=== PATIENT | male | born 1980 | race Caucasian/White ===

== ENCOUNTER 2024-08-24 10:29 | Outpatient (AMB) | payer BC, SELFPAY ==
[2024-08-24 10:37] VITALS: BP 122/70; PULSE 71; O2SAT 96; BMI 53.3
--- NOTE | 2024-08-24 10:37 | MHC.OFFVIS ---
Vital Signs 08/24/24 10:37 Height 5 ft 9 in Weight 361 lb BMI 53.3 BP 122/70 Blood Pressure Location Rt brachial Position Sitting Pulse 71 Pulse Source Pulse Oximeter Pulse Oximetry (%) 96 Oxygen Delivery Method Room Air Intake Visit Reasons: Asthma Intake Note: Uses CPAP/ DME is Reliable. Zig Zag Stitcher Required: No Numerical Control Machine Tool Operator: Numerical Control Machine Tool Operator offered & declined Accompanied by: Self / Same As Patient Allergies Seasonal Allergies Allergy (Verified 08/24/24 10:41) sneezy, runny nose, cough, sob Medication List - Last Reconciled 08/24/24 by Lauren Ortiz LPN albuterol sulfate 90 mcg/actuation 2 puffs inhalation Q4-6H PRN citalopram (Celexa) 10 mg PO DAILY levothyroxine 200 mcg PO DAILY levothyroxine 37.5 mcg PO DAILY montelukast (Singulair) 10 mg PO DAILY HPI HPI Asthma: Details: Jhonathan is a pleasant 44 year old male, current minimal cigar smoker x 20 years, everyday marijuana smoker with underlying asthma, allergic rhinitis, DMII, morbid obesity BMI 53 and h/o seizure disorder. He was referred by ENT for pulmonary evaluation after recent spirometry revealed severe obstructive airway. He reports symptoms have been suboptimally controlled on albuterol MDI, using frequently for persistent dyspnea on exertion, chest tightness and wheezing. Reports occasional dry cough. He was previously prescribed Trelegy however not financially feasible. He reports symptoms can be triggered by allergies, recent RAST + multiple environmental allergens. He is prescribed Singulair and uses antihistmines with moderate effect. IgE 978. Many years ago underwent allergen immunotherapy. He currently has two dogs at home. He reports likely occupational exposures while working at [employer] x 18 years. He reports asthma dx as an adult, never requiring intubuation/hospitalizations. He reports mother and sister with seasonal allergies, denies any other pertinent family history. [facility] Social History (Updated 08/24/24 @ 10:45 by Lauren Ortiz LPN) Tobacco use type: Cigar Years Smoked: never cigarettes/ 5days/ week marijuana/ occasional cigars Review of Systems Const Denies chills, Denies excessive sweating, Denies fever(s), Denies headache(s) and Denies night sweats Eyes Denies dry eyes and Denies irritation ENT Reports Normal hearing present, Denies headache(s), Denies nasal discharge and Denies sore throat Card Denies chest pain, Denies chest pain at rest, Denies chest pain with activity, Denies claudication, Denies leg edema, Denies orthopnea and Denies paroxysmal nocturnal dyspnea Resp Denies chest congestion, Denies excessive phlegm production, Denies pain on inspiration, Denies pain with cough and Denies stridor Musc Denies myalgias Neuro Reports Normal hearing present and Denies headache(s) Endo Denies excessive sweating Marlon/Lymph Denies lymphadenopathy Aller/Immun Denies seasonal rhinorrhea Physical Exam Vital Signs: Last Vital Signs Pulse 71 08/24/24 10:37 BP 122/70 08/24/24 10:37 Pulse Ox 96 08/24/24 10:37 Oxygen Delivery Method Room Air 08/24/24 10:37 BMI result Body Mass Index 53.3 Const General: cooperative, healthy appearing, comfortable, no acute distress, well developed and alert Nutritional Appearance: obese Orientation/consciousness: patient oriented x3 Limitations: no limitations HEENT Head: Yes normal to inspection, Yes normocephalic and Yes atraumatic Ears: hearing grossly normal bilaterally and external ears normal Eyes General: appearance normal, both eyes and all related structures Eyelids: Yes eyelids normal Sclerae: sclerae normal EOM: EOMs intact bilaterally Neck Neck: Yes normal visual inspection and Yes no lymphadenopathy Lymphatic: no lymphadenopathy noted Chest Chest palpation & inspection: normal inspection of the chest Resp Effort & Inspection: normal respiratory effort, able to speak in complete sentences, no audible wheezes, no cough, no stridor, not tachypneic, no tripod positioning and no use of accessory muscles Auscultation: diminished lung sounds Cardio Jugular venous distension: no JVD Rate: regular rate Rhythm: regular rhythm Skin Other: warm, dry General skin exam: no rashes or lesions noted Neuro General: patient oriented x3 Cranial nerves: Yes Normal hearing present Cognition (Neuro): normal cognition Gait exam (Neuro): Normal gait present Extrem General: Yes normal to inspection, Yes capillary refill normal, Yes no clubbing, cyanosis or edema and Yes no pedal edema Psych Appearance: grossly normal and well kempt Speech and movement: Normal speech and movement present and Clear speech present Affect: normal affect Attitude: cooperative Thought process: Normal thought process present Thought content: Normal thought content present Insight: Good insight present (Psych) Judgement: Good judgement present (Psych) Assessment & Plan Assessment & Plan (1) Asthma: Code(s): J45.909 - Unspecified asthma, uncomplicated Category: Medical (2) Nicotine dependence, cigarettes, uncomplicated: Code(s): F17.210 - Nicotine dependence, cigarettes, uncomplicated Category: Medical (3) Allergic rhinitis: Code(s): J30.9 - Allergic rhinitis, unspecified Category: Medical Plan Jhonathan presents for pulmonary evaluation after recent spirometry through ENT revealed severe airway obstruction. FEV1/FVC 64%, FEV1 54%. Will empirically start patient on Breo 200 mcg. Discussed importance of good oral hygiene to prevent thrush. Will send for PFT for more thorough evaluation as well as CXR. Recent allergy testing revealed significant allergens as well as elevated IgE 978. May need to consider allergy referral vs biologic. Patient morbidly obese which is likely a contributing factor, however lost 60lbs over the last 1.5 years with the use on Muonjaro and is motivated to continue to lose weight. All questions were answered and patient is in agreement of plan. Will follow up in 6-8 weeks or sooner if needed. Orders: Orders XR chest 2V Today F17.210 - Nicotine dependence, cigarettes, uncomplicated, R06.00 - Dyspnea, unspecified PFT pulmonary function test Today J45.909 - Unspecified asthma, uncomplicated Medications: New fluticasone furoate-vilanterol 200-25 mcg/dose (Breo Ellipta) 1 inh inhalation DAILY 60 ea 6RF Coding Level of Care Code New Pt Level 4 (35118) Diagnoses Asthma J45.909 Nicotine dependence, cigarettes, uncomplicated F17.210 Allergic rhinitis J30.9
== END 2024-08-24 11:15 | disposition home or self-care (01) ==
LOC: HO.HPSW 10:30
PROVIDERS: PCP Internal Medicine; Referring Provider Otolaryngology; Visit Provider Nurse Practitioner Family
DX: J45.909 Unspecified asthma, uncomplicated (principal); F17.210 Nicotine dependence, cigarettes, uncomplicated; J30.9 Allergic rhinitis, unspecified
CPT/HCPCS: 99204

== ENCOUNTER 2024-10-11 15:51 | Outpatient (REF) | payer BC, SELFPAY ==
--- NOTE | ~2024-10-11 | XR_ITS ---
EXAMINATION: XR CHEST 2 VIEWS HISTORY: R06.00 - Dyspnea, unspecified COMPARISON: There are no prior studies for comparison. FINDINGS: PA and lateral views of the chest are submitted. The lungs are expanded and clear. There is no pleural effusion, pneumothorax, or pulmonary vascular congestion. The heart is normal in size. There is mild degenerative disc disease of the spine. XR/XR chest 2V IMPRESSION: Clear lungs. Electronically signed by: Joce Machado MD 10/12/2024 07:50 AM EDT
--- NOTE | 2024-10-11 15:57 | PFT_ITS ---
Flows: FEV1: 59 % of predicted at 2.34 L FVC: 67 % of predicted at 3.35 L FEV1/FVC: 70 % Bronchodilator response: Present Volumes: Total lung capacity: 74 % of predicted at 5.15 L Residual volume: 107 % of predicted at 1.76 L Slow vital capacity: 64 % of predicted at 3.39 L Expiratory reserve volume: 48 % of predicted at 0.69 L Diffusion capacity: Normal Impression: Combined moderate obstructive and restrictive ventilatory defects with positive bronchodilator response. Decreased expiratory reserve volume suggests extrathoracic restriction likely secondary to abdominal obesity. MTDD
--- OUTSIDE RECORDS SUMMARY | 2024-10-11 16:07 | XMS_ITS | Data Portability ---
Author Organization [place] [facility], Allergy Address [address] [place] [id number] Care Team Providers Care Upper Extremity Surgeon Name Role Phone ALEXEY SANTIAGO Primary Care Provider Assessment Encounter Date Assessment Date Assessment LastModified by Organization Details LastModified Time 06/14/2024 06/14/2024 44 year old male presents for evaluation of nasal congestion and PND. Anterior rhinoscopy demonstrated grade 3 nasal polyps bilaterally and blue and boggy inferior nasal turbinates bilaterally. No purulence was noted. Recommended CT sinus and allergy testing for further evaluation. Will hold off on Flonase given history of epistaxis with prolonged use. He will follow-up to discuss the results and to discuss possible surgical intervention. Patient agrees with the plan and all questions were answered. osei Not available 06/14/2024 12:19:56 Plan of Treatment Reminders Order Date Submit Date Provider Last Modified By Organization Details Last Modified Time Details Appointments None record ed. Lab ige, total, serum 2024 025 WALKER [facility] (Centralized Electronic Ordering - All Locations), Patient Can Go To The Location Of Their Choice, 05:16:46 CBC w/ auto diff 2024 025 WALKER [facility] (Centralized Electronic Ordering - All Locations), Patient Can Go To The Location Of Their Choice, 05:16:45 unlist ed lab - leukot riene E4, 24 HR, U 2024 025 [email or web address] [facility] (Centralized Electronic Ordering - All Locations), Patient Can Go To The Location Of Their Choice, 5 15:55:17 unlist ed lab - allerg ens, zone 1 2024 025 W[place]ER [facility] (Centralized Electronic Ordering - All Locations), Patient Can Go To The Location Of Their Choice, 5 05:16:45 nettle IgE Ab, serum 2024 025 [email or web address] [facility] (Centralized Electronic Ordering - All Locations), Patient Can Go To The Location Of Their Choice, 5 09:14:45 bahia grass IgE Ab, quanti tative , serum 2024 025 [email or web address] [facility] (Centralized Electronic Ordering - All Locations), Patient Can Go To The Location Of Their Choice, 5 09:14:45 bermud a grass ige, serum 2024 025 jschreibstein [facility] (Centralized Electronic Ordering - All Locations), Patient Can Go To The Location Of Their Choice, 5 09:14:45 englis h planta in ige, serum 2024 025 jschreibstein [facility] (Centralized Electronic Ordering - All Locations), Patient Can Go To The Location Of Their Choice, 5 09:14:45 ige, total, serum 2024 025 jschreibstein [facility] (Centralized Electronic Ordering - All Locations), Patient Can Go To The Location Of Their Choice, 5 09:14:45 Referral None record ed. Procedures allerg y testin g, skin prick (PROC) 2024 025 hlorinser Not available 5 14:53:15 intrad ermal allerg y skin testin g (PROC) 2024 025 hlorinser Not available 5 14:53:15 pulmon janis functi on test proced ure (PROC) 2024 025 [email or web address] Not available 5 14:53:15 pulse oximet ry (PROC) 2024 025 hlorinser Not available 14:53:15 Surgeries None record ed. Imaging CT, sinuse s, w/o contra st 2024 025 WALKER [facility] [place], [address], [address], [place], [address], 08:47:44 Medication Orders None record ed. Patient TargetsNo targets recorded. Patient Instructions Encounter Date Encounter Id Patient Instructions Last Modified By Organization Details Last Modified Time 07/17/2024 [id number] 10-minute Dox[facility]ity telehealth visit using video and audio. Patient Internet was unstable. Reviewed images of the CT scan with the patient. Suggest pulmonary consultation which is pending, IgE level, RAST panel, CBC with differential and 24-hour urine for leukotriene E4. We discussed that he would likely benefit from surgical intervention and we can determine the risk of recurrence and need for biologic therapy in the future [email or web address] Not available 07/17/2024 08:34:04 Reason for Referral None Reported. Results Created Date Observation Date Name Description Value Unit Range Abnormal Flag Note LastModifiedBy Organization Detail LastModifiedTime 07/17/1907/18/2024 CBC WITH DIFFE RENTI AL/PL ATELE T WBC 7.1 x10e3 /uL 3.4-10 .8 normal Not Available [facility] ([facility]) [address] [place], [address], 07/20/2024 05:16:44 07/17/1907/18/2024 CBC WITH DIFFE RENTI AL/PL ATELE T RBC 5.86 x10e6 /uL 4.14-5 .80 above high normal Not Available [facility] ([facility]) [address] [place], [address], 07/20/2024 05:16:44 07/17/19 25 07/18/2024 CBC WITH DIFFE RENTI AL/PL ATELE T hemoglobin 15.5 g/dL 13.0-1 7.7 normal Not Available [facility] ([facility]) [address] [place], [address], 07/20/2024 05:16:44 07/17/19 25 07/18/2024 CBC WITH DIFFE RENTI AL/PL ATELE T hematocrit 48.6 % 37.5-5 1.0 normal Not Available [facility] ([facility]) [address] [place], [address], 07/20/2024 05:16:44 07/17/19 25 07/18/2024 CBC WITH DIFFE RENTI AL/PL ATELE T MCV 83 fL 79-97 normal Not Available [facility] ([facility]) [address] [place], [address], 07/20/2024 05:16:44 07/17/19 25 07/18/2024 CBC WITH DIFFE RENTI AL/PL ATELE T MCH 26.5 pg 26.6-3 3.0 below low normal Not Available [facility] ([facility]) [address] [place], [address], 07/20/2024 05:16:44 07/17/19 25 07/18/2024 CBC WITH DIFFE RENTI AL/PL ATELE T MCHC 31.9 g/dL 31.5-3 5.7 normal Not Available [facility] ([facility]) [address] [place], [address], 07/20/2024 05:16:44 07/17/19 25 07/18/2024 CBC WITH DIFFE RENTI AL/PL ATELE T RDW 12.9 % 11.6-1 5.4 Not Available [facility] ([facility]) [address] [place], [address], 07/20/2024 05:16:44 07/17/19 25 07/18/2024 CBC WITH DIFFE RENTI AL/PL ATELE T platelets 239 x10e3 /uL 150-45 0 normal Not Available [facility] ([facility]) [address] [place], [address], 07/20/2024 05:16:44 07/17/19 25 07/18/2024 CBC WITH DIFFE RENTI AL/PL ATELE T neutrophils 50 % not estab. normal Not Available [facility] ([facility]) [address] [facility], [place], [address], 07/20/2024 05:16:44 07/17/19 25 07/18/2024 CBC WITH DIFFE RENTI AL/PL ATELE T lymphs 34 % not estab. normal Not Available [facility] ([facility]) [address] [facility], [place], [address], 07/20/2024 05:16:44 07/17/19 25 07/18/2024 CBC WITH DIFFE RENTI AL/PL ATELE T monocytes 9 % not estab. normal Not Available [facility] ([facility]) [address] [facility], [place], [address], 07/20/2024 05:16:44 07/17/19 25 07/18/2024 CBC WITH DIFFE RENTI AL/PL ATELE T eos 6 % not estab. normal Not Available [facility] ([facility]) [address] [facility], [place], [address], 07/20/2024 05:16:44 07/17/19 25 07/18/2024 CBC WITH DIFFE RENTI AL/PL ATELE T basos 1 % not estab. normal Not Available [facility] (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) [address] [facility], [place], [address], 07/20/2024 05:16:44 07/17/19 25 07/18/2024 CBC WITH DIFFE RENTI AL/PL ATELE T neutrophils (absolute) 3.5 x10e3 /uL 1.4-7. 0 normal Not Available [facility] ([facility]) [address] [place], [address], 07/20/2024 05:16:44 07/17/19 25 07/18/2024 CBC WITH DIFFE RENTI AL/PL ATELE T lymphs (absolute) 2.4 x10e3 /uL 0.7-3. 1 normal Not Available [facility] ([facility]) [address] [place], [address], 07/20/2024 05:16:44 07/17/19 25 07/18/2024 CBC WITH DIFFE RENTI AL/PL ATELE T monocytes(ab solute) 0.7 x10e3 /uL 0.1-0. 9 normal Not Available [facility] ([facility]) [address] [place], [address], 07/20/2024 05:16:44 07/17/19 25 07/18/2024 CBC WITH DIFFE RENTI AL/PL ATELE T eos (absolute) 0.5 x10e3 /uL 0.0-0. 4 above high normal Not Available [facility] ([facility]) [address] [place], [address], 07/20/2024 05:16:44 07/17/19 25 07/18/2024 CBC WITH DIFFE RENTI AL/PL ATELE T baso (absolute) 0.1 x10e3 /uL 0.0-0. 2 normal Not Available [facility] ([facility]) [address] [place], [address], 07/20/2024 05:16:44 07/17/19 25 07/18/2024 CBC WITH DIFFE RENTI AL/PL ATELE T immature granulocytes 0 % not estab. Not Available [facility] ([facility]) [address] [place], [address], 07/20/2024 05:16:44 07/17/19 25 07/18/2024 CBC WITH DIFFE RENTI AL/PL ATELE T immature grans (abs) 0.0 x10e3 /uL 0.0-0. 1 Not Available [facility] (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) [address] [facility], [place], [address], 07/20/2024 05:16:44 07/17/19 25 07/17/2024 ALLER GENS, ZONE 1 class description Commen t Level s of Speci fic IgE Class Descr iptio n of Class ----- ----- ----- ----- ----- -- ----- ----- ----- ----- ----- < 0.10 0 Negat marck 0.10 - 0.31 0/I Equiv ocal/ Low 0.32 - 0.55 I Low 0.56 - 1.40 II Moder ate 1.41 - 3.90 III High 3.91 - 19.00 IV Very High 19.01 - 100.0 0 V Very High >100. 00 Very High Not Available [facility] ([facility]) [address] [facility], [place], [address], 07/20/2024 05:16:45 07/17/19 25 07/20/2024 ALLER GENS, ZONE 1 Y451-BcK D pteronyssinu s 3.14 kU/L class III abnormal Not Available [facility] ([facility]) [address] [place], [address], 07/20/2024 05:16:45 07/17/19 25 07/20/2024 ALLER GENS, ZONE 1 C362-DzQ D farinae 3.84 kU/L class III abnormal Not Available [facility] ([facility]) [address] [place], [address], 07/20/2024 05:16:45 07/17/19 25 07/20/2024 ALLER GENS, ZONE 1 Q554-TjR CAT dander 1.14 kU/L class II abnormal Not Available [facility] ([facility]) [address] [place], [address], 07/20/2024 05:16:45 07/17/19 25 07/20/2024 ALLER GENS, ZONE 1 E537-WtP dog dander 4.03 kU/L class IV abnormal Not Available [facility] ([facility]) [address] [place], [address], 07/20/2024 05:16:45 07/17/19 25 07/20/2024 ALLER GENS, ZONE 1 t524-KfN bermuda grass 0.34 kU/L class I abnormal Not Available [facility] ([facility]) [address] [place], [address], 07/20/2024 05:16:45 07/17/19 25 07/20/2024 ALLER GENS, ZONE 1 a544-RnE bluegrass, [facility] 0.[facility] kU/L class 0/I abnormal Not Available [facility] ([facility]) [address] [place], [address], 07/20/2024 05:16:45 07/17/19 25 07/20/2024 ALLER GENS, ZONE 1 t681-OkU bahia grass 0.22 kU/L class 0/I abnormal Not Available [facility] ([facility]) [address] [place], [address], 07/20/2024 05:16:45 07/17/19 25 07/20/2024 ALLER GENS, ZONE 1 S560-EfL cockroach, thai 0.64 kU/L class II abnormal Not Available [facility] ([facility]) [address] [place], [address], 07/20/2024 05:16:45 07/17/19 25 07/20/2024 ALLER GENS, ZONE 1 O643-ZdJ penicillium chrysogen 0.72 kU/L class II abnormal Not Available [facility] ([facility]) [address] [place], [address], 07/20/2024 05:16:45 07/17/19 25 07/20/2024 ALLER GENS, ZONE 1 R798-ZwB cladosporium herbarum 0.79 kU/L class II abnormal Not Available [facility] ([facility]) [address] [place], [address], 07/20/2024 05:16:45 07/17/19 25 07/20/2024 ALLER GENS, ZONE 1 P990-WdH aspergillus fumigatus 0.14 kU/L class 0/I abnormal Not Available [facility] ([facility]) [address] [place], [address], 07/20/2024 05:16:45 07/17/19 25 07/20/2024 ALLER GENS, ZONE 1 F066-UpZ mucor racemosus <0.10 kU/L class 0 Not Available [facility] ([facility]) [address] [place], [address], 07/20/2024 05:16:45 07/17/19 25 07/20/2024 ALLER GENS, ZONE 1 Y965-DfE alternaria alternata 0.82 kU/L class II abnormal Not Available [facility] ([facility]) [address] [facility], [place], [address], 07/20/2024 05:16:45 07/17/19 25 07/20/2024 ALLER GENS, ZONE 1 P486-RdD stemphylium herbarum 0.38 kU/L class I abnormal Not Available [facility] ([facility]) [address] [facility] [place], [address], 07/20/2024 05:16:45 07/17/19 25 07/20/2024 ALLER GENS, ZONE 1 B635-EtO common silver birch 6.89 kU/L class IV abnormal Not Available [facility] ([facility]) [address] [place], [address], 07/20/2024 05:16:45 07/17/19 25 07/20/2024 ALLER GENS, ZONE 1 X791-GpK oak, white 2.51 kU/L class III abnormal Not Available [facility] ([facility]) [address] [place], [address], 07/20/2024 05:16:45 07/17/19 25 07/20/2024 ALLER GENS, ZONE 1 A957-VpO elm, thai 0.31 kU/L class 0/I abnormal Not Available [facility] ([place] [facility]) [address] [place], [address], 07/20/2024 05:16:45 07/17/19 25 07/20/2024 ALLER GENS, ZONE 1 S362-SkI miguel, white 0.55 kU/L class I abnormal Not Available [facility] ([place] [facility]) [address] [place], [address], 07/20/2024 05:16:45 07/17/19 25 07/20/2024 ALLER GENS, ZONE 1 U928-WgW maple/box elder 0.28 kU/L class 0/I abnormal Not Available [facility] ([facility]) [address] [place], [address], 07/20/2024 05:16:45 07/17/19 25 07/20/2024 ALLER GENS, ZONE 1 A455-MbA hazelnut tree 3.10 kU/L class III abnormal Not Available [facility] ([facility] [facility]) [address] [place], [address], 07/20/2024 05:16:45 07/17/19 25 07/20/2024 ALLER GENS, ZONE 1 L786-XfR hickory, white 0.44 kU/L class I abnormal Not Available [facility] ([place] [facility]) [address] [facility], [place], [address], 07/20/2024 05:16:45 07/17/19 25 07/20/2024 ALLER GENS, ZONE 1 F138-BsD white mulberry <0.10 kU/L class 0 Not Available [facility] ([place] [facility]) [address] [place], [address], 07/20/2024 05:16:45 07/17/19 25 07/20/2024 ALLER GENS, ZONE 1 Y668-HgF cedar, mountain 0.37 kU/L class I abnormal Not Available [facility] ([facility]) [address] [place], [address], 07/20/2024 05:16:45 07/17/19 25 07/20/2024 ALLER GENS, ZONE 1 Z660-VfX ragweed, short 0.50 kU/L class I abnormal Not Available [facility] ([facility] [facility]) [address] [place], [address], 07/20/2024 05:16:45 07/17/19 25 07/20/2024 ALLER GENS, ZONE 1 B484-DlT mugwort 0.27 kU/L class 0/I abnormal Not Available [facility] ([facility]) [address] [place], [address], 07/20/2024 05:16:45 07/17/19 25 07/20/2024 ALLER GENS, ZONE 1 T956-RaB plantain, paraguayan 0.34 kU/L class I abnormal Not Available [facility] ([facility]) [address] [facility], [place], [address], 07/20/2024 05:16:45 07/17/19 25 07/20/2024 ALLER GENS, ZONE 1 Y623-KcX pigweed, common 0.34 kU/L class I abnormal Not Available [facility] ([facility]) [address] [facility], [place], [address], 07/20/2024 05:16:45 07/17/19 25 07/20/2024 ALLER GENS, ZONE 1 B107-XkT sheep sorrel 0.29 kU/L class 0/I abnormal Not Available [facility] ([facility]) [address] [facility], [place], [address], 07/20/2024 05:16:45 07/17/19 25 07/20/2024 ALLER GENS, ZONE 1 V599-XwE nettle 0.29 kU/L class 0/I abnormal Not Available [facility] ([facility]) [address] [facility], [place], [address], 07/20/2024 05:16:45 07/17/19 25 07/20/2024 IMMUN OGLOB ULIN E, TOTAL immunoglobul in E, total 978 IU/mL 6-495 above high normal Not Available [facility] ([facility]) [address] [facility], [place], [address], 07/20/2024 05:16:46 06/28/19 25 06/27/2024 CT, sinus es, w/o contr ast No observ ation record ed. [email or web address] [facility] [place] [address] [address], [place], [address], 06/28/2024 09:31:45 07/12/19 kehinde metry testi ng* No observ ation record ed. sam Not Available 21:35:06 07/12/19 25 01/18/2024 kehinde metry testi ng* No observ ation record ed. sam [facility] [id number] 07/12/2024 21:34:58 Result Notes None recorded. Problems Name Problem SNOMED Code Status Onset Date Resolution Date Notes Provider Name and Address Organization Details Recorded Time Polyp of nasal cavity 459477442 Active 025 TRACY MCFARLAND PA-C [address], [place], [address], [facility] [place] 5 12:18:00 Nasal congestion 63224827 Active 025 TRACY MCFARLAND PA-C [address], [place], [address], [facility] [place] 5 12:18:04 Posterior rhinorrhea 46070321 Active 025 TRACY MCFARLAND PA-C [address], [place], [address], [facility] - [facility] [place] 5 12:18:09 Allergic rhinitis 01537291 Active 025 TRACY MCFARLAND PA-C [address], [place], [address], [facility] - [facility] [place] 5 12:18:19 Loss of sense of smell 85811556 Active 025 TRACY MCFARLAND PA-C [address], [place], [address], [facility] - [facility] [place] 5 12:20:00 Asthma 664137065 Active 025 SUZANNA MCDONOUGH MD [address], [place], [address], [facility] - [facility] [place] 5 16:18:04 Chronic sinusitis 05084209 Active 025 TREMAINE FREEMAN MD [address] [facility] [address], [place], [address], [facility] 5 08:31:19 Moderate persistent asthma 750964514 Active 025 TREMAINE FREEMAN MD [address] [facility] [address], [place], [address], [facility] 5 08:34:32 Notes:type II diabetes Problem Notes None recorded. Procedures Surgical History None recorded. Imaging Results Imaging Date Name Status LastModified by [facility]iz [facility] Details LastModified Time 06/27/2024 CT, sinuses, w/o contrast completed [email or web address] [facility] [place] [address] [facility] [address], [place], [address], 06/28/2024 09:31:45 07/12/2024 spirometry testing* completed [facility] Information not available 07/12/2024 21:35:06 01/18/2024 spirometry testing* [facility] [employer] [id number] 07/12/2024 21:34:58 Procedure Notes None recorded. Medical Equipment None Reported. Allergies No known drug allergies Medications Name Sig Start Date Stop Date Status Note LastModified by Organization Details LastModified Time citalopram 10 mg tablet active Not Available Not Available Not Available levothyroxi ne 75 mcg tablet 37.5 microgram s every day by oral route. 2024 active Not Available Not Available Not Avai lable montelukast 10 mg tablet TAKE 1 TABLET BY MOUTH ONCE DAILY IN THE EVENING active Not Available Not Available No t Available levothyroxi ne 200 mcg tablet active Not Available Not Available Not Available ipratropium bromide 21 mcg (0.03 %) nasal spray active Not Available Not Available Not Available amoxicillin 875 mg-potassiu m clavulanate 125 mg tablet TAKE 1 TABLET BY MOUTH EVERY 12 HOURS FOR 7 DAYS. 06/14 completed Not Available Not Available Not Available levalbutero l HFA 45 mcg/actuati on aerosol inhaler INHALE 2 PUFFS BY MOUTH EVERY 6 HOURS NEEDED FOR WHEEZING/ SHORTNESS OF BREATH. active Not Available Not Available No t Available Trelegy Ellipta 200 mcg-62.5 mcg-25 mcg powder for inhalation active Not Available Not Available N ot Available Mounjaro 10 mg/0.5 mL subcutaneou s pen injector active Not Available Not Available Not Available Mounjaro 12.5 mg/0.5 mL subcutaneou s pen injector INJECT 12.5 MG SUBCUTANE OUSLY ONCE A WEEK. ROTATE INJECTION SITES active Not Available Not Available No t Available Vitals Date Recorded Body height Body mass index (BMI) Body weight Provider Name and Address Organization Details Last Updated DateTime 06/14/2024 175.26 cm 53.2 kg/m2 671489.[address] [facility] 06/14/2024 10:46:57 Date Recorded Body height Body mass index (BMI) Body weight Oxygen saturation Oxygen saturation in Arterial blood by Pulse oximetry Heart rate Systolic blood pressure Diastolic blood pressure Provider Name and Address Organization Details Last Updated DateTime 175.26 cm 53.2 kg/m2 096105. 25 g 95 % 95 % 80 /min 102 mm[Hg] 64 mm[Hg] PATIENCE CH, [address], [address] [place], [place] - [facility] 14:52:46 Social History None recorded. Functional Status Question Answer Note LastModified by Organizat ion Details LastModified Time Do you or have you ever used any other forms of tobacco or nicotine? Yes Information not available 06/14/2024 What is your level of alcohol consumption? Occasional Information not available 06/14/2024 Do you or have you ever used smokeless tobacco? Never used smokeless tobacco Information not available 06/14/2024 Do you or have you ever used e-cigarettes or vape? Never used electronic cigarettes Information not available 06/14/2024 Mental Status None recorded. Family History Nothing Reported. Medical History Condition Response Allergies/Hayfever Y Heart Problems N Anxiety Y Tonsil Infections N Emphysema N Migraines N Thyroid Problems Y Glaucoma N Depression Y COPD N Developmental Delay N Nasal or Sinus Problems Y Anemia N Immune System Disorder N Anesthesia Complications N Heart Attack ([place]) N Other Skin Condition N Diabetes Y Rhinitis Y Bleeding Disorder N Food Allergy N Arthritis N Hearing Loss N Hyperlipidemia N Cancer N Eczema N Stroke N Dementia N Nasal polyps Y Asthma Y High Cholesterol N Sleep Disorder Y GERD/Reflux N Liver Disease N Headaches N Fibromyalgia N Hypertension N Speech Delay N Kidney Disease N Past Encounters Encounter ID Performer Location Encounter Start Date Encounter Closed Date Diagnosis/Indication Diagnosis SNOMED-CT Code Diagnosis ICD10 Code Diagnosis Note [id number] TRACY MCFARLAND PA-C [facility] [address] [address] 06/14/2024 10:34:50 06/14/2024 11:03:02 Polyp of nasal cavity 860422369 J33.0 Nasal congestion 3163486 0 R09.81 Posterior rhinorrhea 758 66635 R09.82 Allergic rhinitis 648070 04 J30.89 Loss of se nse of smell 41971288 R43.0 [id number] DAHLIA MOLINA [facility] [address] [place] [address] [address] 07/12/2024 14:30:25 07/12/2024 15:42:34 Allergic rhinitis 05513583 J30.89 [id number] TREMAINE MILLER MD [facility] [address] [address] 07/17/2024 08:27:55 07/17/2024 09:00:16 Polyp of nasal cavity 381778293 J33.0 Chronic sinusitis 799092 00 J32.9 Moderate p ersistent asthma 710103071 J45.40 Health Concerns Section Related Observation LastModified by Organization Detai ls LastModified Time None Recorded Concern Status LastModified by Organization Details LastModified Time None Recorded Advance Directives Directive None Recorded Payers Insurance Date Sequence Insurance Name Policy Number Policy Akins Covered Member ID Akins Member ID Guarantor Name 07/09/2024 1 [place] [employer] [id number] Jhonathan Spicer [id number] Jhonathan Spicer 09/17/2024 1 EPIOH: ZAK CHILDERS ([place]) [id number] Jhonathan Spicer [id number] Jhonathan Spicer 09/17/2024 1 [facility]: [employer] [id number] Jhonathan Spicer [id number] Jhonathan Spicer 07/09/2024 1 [facility] [id number] Jhonathan Spicer [id number] Jhonathan Spicer Notes Date Note Type Note Provider Name and Address Organization Details Recorded Time 06/14/2024 text/html 44 year old male presents for evaluation of chronic nasal congestion and postnasal drip. Reports chronic anosmia, nasal congestion, and PND. Admits to intermittent cheek pain, but denies headaches or visual changes. He reports history of allergic rhinitis treated with immunotherapy with Dr. Jay many years ago. Has tried Flonase and antihistamines with some improvement in symptoms. He reports Flonase dries him out and he often gets nosebleeds with prolonged use. Reports 1-2 sinus infections per year that responds well with antibiotics and prednisone. Denies prior nasal surgeries. TRACY MCFARLAND PA-C [address], [address], [facility] 06/14/2024 12:25:02 07/17/2024 text/html Had CT showing pansinusitis. There is chronic pansinusitis. There is complete obscuration of the right frontalsinus, frontoethmoidal recesses, ethmoid sinuses bilateral, and maxillary sinuses.Mucosal thickening extends to the sphenoid sinuses bilaterally with chronicreactive sinus wall thickening. There is obscuration of the nasal passagesbilaterally.Th ere is osseous demineralization of the ethmoid septations and the nasal septum.There is a shallow rightward nasal spur. Poor PFTs limited skin testing. Hx of asthma, DM, obesity and thyroid disease Doximity visit TREMAINE SIMEON MD 100 [facility],[address], [address], [facility] 07/17/2024 08:35:47
[2024-10-11 16:45] VITALS: PULSE 77; O2SAT 94
== END 2024-10-11 15:52 | disposition home or self-care (01) ==
LOC: HO.RESP 15:51
PROVIDERS: PCP Internal Medicine; Visit Provider Nurse Practitioner Family
DX: J45.909 Unspecified asthma, uncomplicated (principal); R06.00 Dyspnea, unspecified; F17.210 Nicotine dependence, cigarettes, uncomplicated
CPT/HCPCS: 71046; 94010; 94640; 94727; 94729

== ENCOUNTER → 2024-10-11 15:57 | Outpatient (BNV) | payer BC, SELFPAY | PROVIDERS: PCP Internal Medicine; Visit Provider Internal Medicine Pulmonary Disease | DX: J44.9 Chronic obstructive pulmonary disease, unspecified (principal) | CPT/HCPCS: 94060; 94727; 94729 ==

== ENCOUNTER → 2024-10-11 16:44 | Outpatient (BNV) | payer BC, SELFPAY | PROVIDERS: PCP Internal Medicine; Visit Provider Radiology Diagnostic Radiology | DX: R06.00 Dyspnea, unspecified (principal) | CPT/HCPCS: 71046 ==

== ENCOUNTER 2024-10-12 15:55 | Outpatient (AMB) | payer BC, SELFPAY ==
[2024-10-12 15:57] VITALS: BP 118/64; PULSE 78; O2SAT 95; BMI 54.9
--- NOTE | 2024-10-12 15:57 | A.OFFVIS_ITS ---
Vital Signs 10/12/24 15:57 Height 5 ft 9 in Weight 372 lb 2 oz BMI 54.9 BP 118/64 Blood Pressure Location Rt radial Position Sitting Pulse 78 Pulse Source Pulse Oximeter Pulse Oximetry (%) 95 Oxygen Delivery Method Room Air Intake Visit Reasons: Asthma Allergies Seasonal Allergies Allergy (Verified 10/12/24 16:00) sneezy, runny nose, cough, sob HPI HPI Asthma: Details: Jhonathan is a pleasant 44 year old male, current minimal cigar smoker x 20 years, everyday marijuana smoker with underlying asthma, allergic rhinitis, DMII, YULIA on CPAP therapy through [facility], morbid obesity BMI 53 and h/o seizure disorder. He was initially referred by ENT for pulmonary evaluation after recent spirometry revealed severe obstructive airway. He reports symptoms have been suboptimally controlled on albuterol MDI, using frequently for persistent dyspnea on exertion, chest tightness, dry cough and wheezing. He was prescribed Singulair and uses antihistmines with moderate effect. IgE 978. At the last visit he was started on Wixela 250mcg with improvements in wheezing and chest tightness, however continues with dry cough and dyspnea on exertion. Today he presents to review PFT and CXR. [facility] Social History Tobacco use type: Cigar Years Smoked: never cigarettes/ 5days/ week marijuana/ occasional cigars Review of Systems Const Denies chills, Denies excessive sweating, Denies fever(s), Denies headache(s) and Denies night sweats Eyes Denies dry eyes and Denies irritation ENT Reports Normal hearing present, Denies headache(s), Denies nasal discharge and Denies sore throat Card Denies chest pain, Denies chest pain at rest, Denies chest pain with activity, Denies claudication, Denies leg edema, Denies orthopnea and Denies paroxysmal nocturnal dyspnea Resp Denies change in phlegm color, Denies chest congestion, Denies hemoptysis, Denies excessive phlegm production, Denies pain on inspiration, Denies pain with cough, Denies stridor and Denies wheezing Musc Denies myalgias Neuro Reports Normal hearing present and Denies headache(s) Endo Denies excessive sweating Marlon/Lymph Denies lymphadenopathy Aller/Immun Denies seasonal rhinorrhea and Denies wheezing Physical Exam Vital Signs: Last Vital Signs Pulse 78 05/16/25 15:57 BP 118/64 10/12/24 15:57 Pulse Ox 95 10/12/24 15:57 Oxygen Delivery Method Room Air 10/12/24 15:57 BMI result Body Mass Index 54.9 Const General: cooperative, healthy appearing, comfortable, no acute distress, well developed and alert Nutritional Appearance: obese Orientation/consciousness: patient oriented x3 Limitations: no limitations HEENT Head: Yes normal to inspection, Yes normocephalic and Yes atraumatic Ears: hearing grossly normal bilaterally and external ears normal Eyes General: appearance normal, both eyes and all related structures Eyelids: Yes eyelids normal Sclerae: sclerae normal EOM: EOMs intact bilaterally Neck Neck: Yes normal visual inspection and Yes no lymphadenopathy Lymphatic: no lymphadenopathy noted Chest Chest palpation & inspection: normal inspection of the chest Resp Effort & Inspection: normal respiratory effort, able to speak in complete sentences, no audible wheezes, no cough, no stridor, not tachypneic, no tripod positioning and no use of accessory muscles Auscultation: diminished lung sounds Cardio Jugular venous distension: no JVD Rate: regular rate Rhythm: regular rhythm Skin Other: warm, dry General skin exam: no rashes or lesions noted Neuro General: patient oriented x3 Cranial nerves: Yes Normal hearing present Cognition (Neuro): normal cognition Gait exam (Neuro): Normal gait present Extrem General: Yes normal to inspection, Yes capillary refill normal, Yes no clubbing, cyanosis or edema and Yes no pedal edema Psych Appearance: grossly normal and well kempt Speech and movement: Normal speech and movement present and Clear speech present Affect: normal affect Attitude: cooperative Thought process: Normal thought process present Thought content: Normal thought content present Insight: Good insight present (Psych) Judgement: Good judgement present (Psych) Results Reviewed Results Reviewed: [address] [address] XRay Report Signed Patient: Jhonathan Spicer MR#: [id number] : 1980 Acct:[id number] Age/Sex: 44 / M ADM Date: 10/11/24 Loc: HO.RESP Attending Dr: Neeta Patel NP Ordering Physician: Neeta Patel NP Date of Service: 10/11/24 Procedure(s): XR chest 2V Accession Number(s): [id number] cc: ALEXEY SANTIAGO MD; Neeta Patel NP~ EXAMINATION: XR CHEST 2 VIEWS HISTORY: R06.00 - Dyspnea, unspecified COMPARISON: There are no prior studies for comparison. FINDINGS: PA and lateral views of the chest are submitted. The lungs are expanded and clear. There is no pleural effusion, pneumothorax, or pulmonary vascular congestion. The heart is normal in size. There is mild degenerative disc disease of the spine. XR/XR chest 2V IMPRESSION: Clear lungs. Electronically signed by: Joce Machado MD 10/12/2024 07:50 AM EDT RP Dictated By: Joce Machado MD Signed By: <Electronically signed by Joce Machado MD in OV> 10/12/24 0750 DD/ 1635 TD/TT: 10/11/24 1640 [employer]ting [employer] T[employer] Helper: Assessment & Plan Assessment & Plan (1) Asthma: Code(s): J45.909 - Unspecified asthma, uncomplicated Category: Medical (2) Nicotine dependence, cigarettes, uncomplicated: Code(s): F17.210 - Nicotine dependence, cigarettes, uncomplicated Category: Medical (3) Allergic rhinitis: Code(s): J30.9 - Allergic rhinitis, unspecified Category: Medical Plan Reviewed PFT which revealed mild restrictive defect with normal DLCO, likely related to morbid obesity. Discussed importance of weight loss. There was also borderline obstructive defect with significant response to bronchodilators suggestive of asthma. He continues to report suboptimal control with Wixela 250 mcg, will increase to 500 mcg. He is aware to call office if symptoms do not improve. CXR unremarkable. Smoking cessation reviewed. All questions were answered and patient is in agreement of plan. Will follow up in 6-8 weeks or sooner if needed. Medications: New fluticasone propion-salmeterol 500-50 mcg/dose (Wixela Inhub) 1 inh inhalation Q12H 60 ea 6RF Discontinued fluticasone propion-salmeterol 250-50 mcg/dose (Wixela Inhub) Discontinued Reason: Patient Completed Course 1 inh inhalation Q12H 60 ea 3RF Coding Level of Care Code Est Pt Level 4 (62738) Diagnoses Asthma J45.909 Nicotine dependence, cigarettes, uncomplicated F17.210 Allergic rhinitis J30.9
== END 2024-10-12 16:30 | disposition home or self-care (01) ==
LOC: HO.HPSW 15:56
PROVIDERS: PCP Internal Medicine; Visit Provider Nurse Practitioner Family
DX: J45.909 Unspecified asthma, uncomplicated (principal); F17.210 Nicotine dependence, cigarettes, uncomplicated; J30.9 Allergic rhinitis, unspecified
CPT/HCPCS: 99214

== ENCOUNTER 2024-12-25 15:56 | Outpatient (AMB) | payer BC, SELFPAY ==
--- NOTE | 2024-12-25 16:01 | A.OFFVIS_ITS ---
Vital Signs 12/25/24 16:02 Height 5 ft 9 in Weight 374 lb 8 oz BMI 55.3 BP 108/70 Blood Pressure Location Rt brachial Position Sitting Pulse 89 Pulse Source Pulse Oximeter Pulse Oximetry (%) 96 Oxygen Delivery Method Room Air Intake Visit Reasons: Asthma Allergies Seasonal Allergies Allergy (Verified 12/25/24 16:05) sneezy, runny nose, cough, sob HPI HPI Asthma: Details: Jhonathan is a pleasant 44 year old male, current minimal cigar smoker x 20 years, everyday marijuana smoker with underlying asthma, allergic rhinitis, DMII, YULIA on CPAP therapy through [facility], morbid obesity BMI 55 and h/o seizure disorder. He was initially referred by ENT for pulmonary evaluation after recent spirometry revealed severe obstructive airway. He reported suboptimal control on Wixela 250 mcg, Singulair and antihistamines PRN, requiring albuterol MDI frequently. At the last visit, Wixela was increased to 500mcg and patient reports significant improvements, now using albuterol MDI 2-3 times per week, usually after moderate exertion. He currently denies any respiratory symptoms. He does note that allergies trigger symptoms and is under the care of ENT, with the plan for allergy testing and potential allergen immunotherapy.Prior IgE 978. He denies any visits to urgent care or hospitalizations related to respiratory distress since the last visit. [facility] Social History (Reviewed 12/25/24 @ 16:05 by Hollie Patrick [facility]) Tobacco use type: Cigar Years Smoked: never cigarettes/ 5days/ week marijuana/ occasional cigars Review of Systems Const Denies chills, Denies excessive sweating, Denies fever(s), Denies headache(s) and Denies night sweats Eyes Denies dry eyes, Denies irritation and Denies itchy eyes ENT Reports Normal hearing present, Denies headache(s), Denies nasal discharge and Denies sore throat Card Denies chest pain, Denies chest pain at rest, Denies chest pain with activity, Denies claudication, Denies leg edema, Denies dyspnea, Denies dyspnea on exertion, Denies orthopnea and Denies paroxysmal nocturnal dyspnea Resp Denies chest congestion, Denies cough, Denies excessive phlegm production, Denies pain on inspiration, Denies pain with cough, Denies dyspnea, Denies dyspnea on exertion, Denies stridor and Denies wheezing Musc Denies myalgias Neuro Reports Normal hearing present and Denies headache(s) Endo Denies excessive sweating Marlon/Lymph Denies lymphadenopathy Aller/Immun Denies itchy eyes, Denies seasonal rhinorrhea and Denies wheezing Physical Exam Vital Signs: Last Vital Signs Pulse 89 12/25/24 16:02 BP 108/70 12/25/24 16:02 Pulse Ox 96 12/25/24 16:02 Oxygen Delivery Method Room Air 12/25/24 16:02 BMI result Body Mass Index 55.3 Const General: cooperative, healthy appearing, comfortable, no acute distress, well developed and alert Nutritional Appearance: obese Orientation/consciousness: patient oriented x3 Limitations: no limitations HEENT Head: Yes normal to inspection, Yes normocephalic and Yes atraumatic Ears: hearing grossly normal bilaterally and external ears normal Eyes General: appearance normal, both eyes and all related structures Eyelids: Yes eyelids normal Sclerae: sclerae normal EOM: EOMs intact bilaterally Neck Neck: Yes normal visual inspection and Yes no lymphadenopathy Lymphatic: no lymphadenopathy noted Chest Chest palpation & inspection: normal inspection of the chest Resp Effort & Inspection: normal respiratory effort, able to speak in complete sentences, no audible wheezes, no cough, no stridor, not tachypneic, no tripod positioning and no use of accessory muscles Auscultation: clear to auscultation bilaterally Cardio Jugular venous distension: no JVD Rate: regular rate Rhythm: regular rhythm Skin Other: warm, dry General skin exam: no rashes or lesions noted Neuro General: patient oriented x3 Cranial nerves: Yes Normal hearing present Cognition (Neuro): normal cognition Gait exam (Neuro): Normal gait present Extrem General: Yes normal to inspection, Yes capillary refill normal, Yes no clubbing, cyanosis or edema and Yes no pedal edema Psych Appearance: grossly normal and well kempt Speech and movement: Normal speech and movement present and Clear speech present Affect: normal affect Attitude: cooperative Thought process: Normal thought process present Thought content: Normal thought content present Insight: Good insight present (Psych) Judgement: Good judgement present (Psych) Assessment & Plan Assessment & Plan (1) Asthma: Code(s): J45.909 - Unspecified asthma, uncomplicated Category: Medical (2) Nicotine dependence, cigarettes, uncomplicated: Code(s): F17.210 - Nicotine dependence, cigarettes, uncomplicated Category: Medical (3) Allergic rhinitis: Code(s): J30.9 - Allergic rhinitis, unspecified Category: Medical Plan At this time, patient reports good control of respiratory symptoms on current regimen, advised to continue. If symptoms worsen with seasonal changes may need to consider Trelegy vs biologic therapy. Smoking cessation reviewed. All questions were answered and patient is in agreement of plan. Will follow up in 3 months or sooner if needed. Coding Level of Care Code Est Pt Level 4 (90404) Diagnoses Asthma J45.909 Nicotine dependence, cigarettes, uncomplicated F17.210 Allergic rhinitis J30.9
[2024-12-25 16:02] VITALS: BP 108/70; PULSE 89; O2SAT 96; BMI 55.3
--- OUTSIDE RECORDS SUMMARY | 2024-12-25 16:37 | XMS_ITS | Data Portability ---
Author Organization [place] [facility], Allergy Address [address] [address] Care Team Providers Care Patrol Judge Name Role Phone ALEXEY SANTIAGO Primary Care Provider [phone] Assessment Encounter Date Assessment Date Assessment LastModified [...] The Location Of Their Choice, 5 05:16:45 unlist ed lab - leukot riene E4, 24 HR, U 2024 025 [email or web address] [facility] (Centralized Electronic Ordering - All Locations), [...] contra st 2024 025 WALKER [facility] [place], [address], [address], [place], [address], 08:47:44 Medication Orders None record ed. Patient TargetsNo targets recorded. Patient Instructions Encounter Date Encounter Id Patient Instructions Last Modified By Organization Details Last Modified Time 07/17/2024 [id number] 10-minute Doximity telehealth visit using video and [...] /uL 3.4-10 .8 normal Not Available [facility] ([facility]) [address] [place], [address], 07/20/2024 05:16:44 07/17/19 25 07/18/2024 CBC WITH DIFFE RENTI AL/PL ATELE T RBC 5.86 x10e6 /uL 4.14-5 .80 above high normal Not Available [facility] ([facility]) [address] [place], [address], 07/20/2024 05:16:44 07/17/19 25 07/18/2024 CBC WITH DIFFE RENTI AL/PL ATELE T hemoglobin 15.5 g/dL 13.0-1 7.7 normal Not Available [facility] ([facility]) [address] [facility], [place], [address], 07/20/2024 05:16:44 07/17/19 25 07/18/2024 CBC WITH DIFFE RENTI AL/PL ATELE T hematocrit 48.6 % 37.5-5 1.0 normal Not Available [facility] ([facility]) [address] [facility], [place], [address], 07/20/2024 05:16:44 07/17/19 25 07/18/2024 CBC WITH DIFFE RENTI AL/PL ATELE T MCV 83 fL 79-97 normal Not Available [facility] ([facility]) [address] [facility], [place], [address], 07/20/2024 05:16:44 07/17/19 25 07/18/2024 CBC WITH DIFFE RENTI AL/PL ATELE T MCH 26.5 pg 26.6-3 3.0 below low normal Not Available [facility] ([facility]) [address] [facility], [place], [address], 07/20/2024 05:16:44 07/17/19 25 07/18/2024 CBC WITH DIFFE RENTI AL/PL ATELE T MCHC 31.9 g/dL 31.5-3 5.7 normal Not Available [facility] ([facility]) [address] [place], [address], 07/20/2024 05:16:44 07/17/19 25 07/18/2024 CBC WITH DIFFE RENTI AL/PL ATELE T RDW 12.9 % 11.6-1 5.4 Not Available [facility] ([facility]) [address] [place], [address], 07/20/2024 05:16:44 07/17/19 25 07/18/2024 CBC WITH DIFFE RENTI AL/PL ATELE T platelets 239 x10e3 /uL 150-45 0 normal Not Available [facility] ([facility]) [address] [facility], [place], [address], 07/20/2024 05:16:44 07/17/19 25 07/18/2024 CBC WITH DIFFE RENTI AL/PL ATELE T neutrophils 50 % not estab. normal Not Available [facility] ([facility]) [address] [facility], [place], [address], 07/20/2024 05:16:44 07/17/19 25 07/18/2024 CBC WITH DIFFE RENTI AL/PL ATELE T lymphs 34 % not estab. normal Not Available [facility] ([facility]) [address] [facility], [place], [address], 07/20/2024 05:16:44 07/17/19 25 07/18/2024 CBC WITH DIFFE RENTI AL/PL ATELE T monocytes 9 % not estab. normal Not Available [facility] ([facility]) [address] [facility], [place], [address], 07/20/2024 05:16:44 07/17/19 25 07/18/2024 CBC WITH DIFFE RENTI AL/PL ATELE T eos 6 % not estab. normal Not Available [facility] ([facility]) [address] [facility], [place], [address], 07/20/2024 05:16:44 07/17/19 25 07/18/2024 CBC WITH DIFFE RENTI AL/PL ATELE T basos 1 % not estab. normal Not Available [facility] ([facility]) [address] [facility], [place], [address], 07/20/2024 05:16:44 07/17/19 25 07/18/2024 CBC WITH DIFFE RENTI AL/PL ATELE T immature cells VP OF TECHNOLOGY Not Available [facility] ([facility]) [address] [place], [address], 07/20/2024 05:16:44 07/17/19 25 07/18/2024 CBC WITH DIFFE RENTI AL/PL ATELE T neutrophils (absolute) 3.5 x10e3 /uL 1.4-7. 0 normal Not Available [facility] ([facility]) [address] [place], [address], 07/20/2024 05:16:44 07/17/19 25 07/18/2024 CBC WITH DIFFE RENTI AL/PL ATELE T lymphs (absolute) 2.4 x10e3 /uL 0.7-3. 1 normal Not Available [facility] ([facility]) [address] [place], [address], 07/20/2024 05:16:44 07/17/19 25 07/18/2024 CBC WITH DIFFE RENTI AL/PL ATELE T monocytes(ab solute) 0.7 x10e3 /uL 0.1-0. 9 normal Not Available [facility] ([facility]) [address] [place], [address], 07/20/2024 05:16:44 07/17/19 25 07/18/2024 CBC WITH DIFFE RENTI AL/PL ATELE T eos (absolute) 0.5 x10e3 /uL 0.0-0. 4 above high normal Not Available [facility] ([facility]) [address] [place], [address], 07/20/2024 05:16:44 07/17/19 25 07/18/2024 CBC WITH DIFFE RENTI AL/PL ATELE T baso (absolute) 0.1 x10e3 /uL 0.0-0. 2 normal Not Available [facility] ([facility]) [address] [place], [address], 07/20/2024 05:16:44 07/17/19 25 07/18/2024 CBC WITH DIFFE RENTI AL/PL ATELE T immature granulocytes 0 % not estab. Not Available [facility] ([facility]) [address] [place], [address], 07/20/2024 05:16:44 07/17/19 25 07/18/2024 CBC WITH DIFFE RENTI AL/PL ATELE T immature grans (abs) 0.0 x10e3 /uL 0.0-0. 1 Not Available [facility] ([facility]) [address] [facility], [place], [address], 07/20/2024 05:16:44 07/17/19 25 07/18/2024 CBC WITH DIFFE RENTI AL/PL ATELE T NRBC VP OF TECHNOLOGY Not Available [facility] ([facility]) [address] [facility], [place], [address], 07/20/2024 05:16:44 07/17/19 25 07/18/2024 CBC WITH DIFFE RENTI AL/PL ATELE T hematology comments: VP OF TECHNOLOGY Not Available [facility] ([facility]) [address] [facility], [place], [address], 07/20/2024 05:16:44 07/17/19 25 07/17/2024 ALLER GENS, [...] >100. 00 Very High Not Available [facility] ([facility]) [address] [facility], [place], [address], 07/20/2024 05:16:45 07/17/19 25 07/20/2024 ALLER GENS, ZONE 1 X342-QfC D pteronyssinu s 3.14 kU/L class III abnormal Not Available [facility] ([facility]) [address] [place], [address], 07/20/2024 05:16:45 07/17/19 25 07/20/2024 ALLER GENS, ZONE 1 G189-FbE D farinae 3.84 kU/L class III abnormal Not Available [facility] ([facility]) [address] [place], [address], 07/20/2024 05:16:45 07/17/19 25 07/20/2024 ALLER GENS, ZONE 1 Y654-ZdT CAT dander 1.14 kU/L class II abnormal Not Available [facility] ([facility]) [address] [place], [address], 07/20/2024 05:16:45 07/17/19 25 07/20/2024 ALLER GENS, ZONE 1 E636-KaV dog dander 4.03 kU/L class IV abnormal Not Available [facility] ([facility]) [address] [place], [address], 07/20/2024 05:16:45 07/17/19 25 07/20/2024 ALLER GENS, ZONE 1 m179-HfA bermuda grass 0.34 kU/L class I abnormal Not Available [facility] ([facility]) [address] [place], [address], 07/20/2024 05:16:45 07/17/19 25 07/20/2024 ALLER GENS, ZONE 1 j499-GjP bluegrass, [place] 0.17 kU/L class 0/I abnormal Not Available [facility] ([facility]) [address] [place], [address], 07/20/2024 05:16:45 07/17/19 25 07/20/2024 ALLER GENS, ZONE 1 h186-LeO bahia grass 0.22 kU/L class 0/I abnormal Not Available [facility] ([facility]) [address] [place], [address], 07/20/2024 05:16:45 07/17/19 25 07/20/2024 ALLER GENS, ZONE 1 W644-OvG cockroach, emirati 0.64 kU/L class II abnormal Not Available [facility] ([facility]) [address] [place], [address], 07/20/2024 05:16:45 07/17/19 25 07/20/2024 ALLER GENS, ZONE 1 J277-FmF penicillium chrysogen 0.72 kU/L class II abnormal Not Available [facility] ([facility]) [address] [place], [address], 07/20/2024 05:16:45 07/17/19 25 07/20/2024 ALLER GENS, ZONE 1 G070-UeS cladosporium herbarum 0.79 kU/L class II abnormal Not Available [facility] ([facility]) [address] [place], [address], 07/20/2024 05:16:45 07/17/19 25 07/20/2024 ALLER GENS, ZONE 1 Z681-OyJ aspergillus fumigatus 0.14 kU/L class 0/I abnormal Not Available [facility] ([facility]) [address] [place], [address], 07/20/2024 05:16:45 07/17/19 25 07/20/2024 ALLER GENS, ZONE 1 B628-AvQ mucor racemosus <0.10 kU/L class 0 Not Available [facility] ([facility]) [address] [place], [address], 07/20/2024 05:16:45 07/17/19 25 07/20/2024 ALLER GENS, ZONE 1 B055-GtR alternaria alternata 0.82 kU/L class II abnormal Not Available [facility] ([facility]) [address] [facility], [place], [address], 07/20/2024 05:16:45 07/17/19 25 07/20/2024 ALLER GENS, ZONE 1 J373-CaI stemphylium herbarum 0.38 kU/L class I abnormal Not Available [facility] ([facility]) [address] [place], [address], 07/20/2024 05:16:45 07/17/19 25 07/20/2024 ALLER GENS, ZONE 1 Q247-MsX common silver birch 6.89 kU/L class IV abnormal Not Available [facility] ([facility]) [address] [place], [address], 07/20/2024 05:16:45 07/17/19 25 07/20/2024 ALLER GENS, ZONE 1 J081-JvN oak, white 2.51 kU/L class III abnormal Not Available [facility] ([facility]) [address] [place], [address], 07/20/2024 05:16:45 07/17/19 25 07/20/2024 ALLER GENS, ZONE 1 A313-JfA elm, emirati 0.31 kU/L class 0/I abnormal Not Available [facility] ([facility]) [address] [place], [address], 07/20/2024 05:16:45 07/17/19 25 07/20/2024 ALLER GENS, ZONE 1 K231-XxP miguel, white 0.55 kU/L class I abnormal Not Available [facility] ([facility]) [address] [place], [address], 07/20/2024 05:16:45 07/17/19 25 07/20/2024 ALLER GENS, ZONE 1 B464-EgX maple/box elder 0.28 kU/L class 0/I abnormal Not Available [facility] ([facility]) [address] [facility], [place], [address], 07/20/2024 05:16:45 07/17/19 25 07/20/2024 ALLER GENS, ZONE 1 H647-UkP hazelnut tree 3.10 kU/L class III abnormal Not Available [facility] ([facility]) [address] [facility], [place], [address], 07/20/2024 05:16:45 07/17/19 25 07/20/2024 ALLER GENS, ZONE 1 H338-BzT hickory, white 0.44 kU/L class I abnormal Not Available [facility] ([facility]) [address] [facility], [place], [address], 07/20/2024 05:16:45 07/17/19 25 07/20/2024 ALLER GENS, ZONE 1 Z636-JmU white mulberry <0.10 kU/L class 0 Not Available [facility] ([facility]) [address] [facility], [place], [address], 07/20/2024 05:16:45 07/17/19 25 07/20/2024 ALLER GENS, ZONE 1 E597-CcS cedar, mountain 0.37 kU/L class I abnormal Not Available [facility] ([facility]) [address] [place], [address], 07/20/2024 05:16:45 07/17/19 25 07/20/2024 ALLER GENS, ZONE 1 C696-IxQ ragweed, short 0.50 kU/L class I abnormal Not Available [facility] ([facility]) [address] [place], [address], 07/20/2024 05:16:45 07/17/19 25 07/20/2024 ALLER GENS, ZONE 1 N580-WgG mugwort 0.27 kU/L class 0/I abnormal Not Available [facility] ([facility]) [address] [place], [address], 07/20/2024 05:16:45 07/17/19 25 07/20/2024 ALLER GENS, ZONE 1 A745-CgN plantain, micronesian 0.34 kU/L class I abnormal Not Available [facility] ([facility]) [address] [place], [address], 07/20/2024 05:16:45 07/17/19 25 07/20/2024 ALLER GENS, ZONE 1 A497-OgI pigweed, common 0.34 kU/L class I abnormal Not Available [facility] ([facility]) [address] [place], [address], 07/20/2024 05:16:45 07/17/19 25 07/20/2024 ALLER GENS, ZONE 1 S403-ErL sheep sorrel 0.29 kU/L class 0/I abnormal Not Available [facility] ([facility]) [address], [place], [address], 07/20/2024 05:16:45 07/17/19 25 07/20/2024 ALLER GENS, ZONE 1 B794-IsY nettle 0.29 kU/L class 0/I abnormal Not Available [facility] ([facility]) [address] [place], [address], 07/20/2024 05:16:45 07/17/19 25 07/20/2024 IMMUN OGLOB ULIN E, TOTAL immunoglobul in E, total 978 IU/mL 6-495 above high normal Not Available [facility] ([facility]) [address] [place], [address], 07/20/2024 05:16:46 06/28/19 25 06/27/2024 CT, sinus es, w/o contr ast No observ ation record ed. [email or web address] [facility] [place] [address] [address], [place], [address], 06/28/2024 09:31:45 07/12/19 kehinde metry testi ng* No observ ation record ed. sam Not Available 21:35:06 07/12/19 25 01/18/2024 kehinde metry testi ng* No observ ation record ed. sam [facility] [id number] 07/12/2024 21:34:58 Result Notes None recorded. Problems Name Problem SNOMED Code Status Onset Date Resolution Date Notes Provider Name and Address Organization Details Recorded Time Polyp of nasal cavity 597400654 Active 025 TRACY MCFARLAND PA-C [address], [place], [address], [facility] 5 12:18:00 Nasal congestion 31783908 Active 025 TRACY MCFARLAND PA-C [address], [place], [address], [facility] 5 12:18:04 Posterior rhinorrhea 87092422 Active 025 TRACY MCFARLAND PA-C [address], [place], [address], [facility] - [facility] 5 12:18:09 Allergic rhinitis 95073912 Active 025 TRACY MCFARLAND PA-C [address], [place], [address], [facility] - [facility] 5 12:18:19 Loss of sense of smell 99603516 Active 025 TRACY MCFARLAND PA-C [address], [place], [address], [facility] - [facility] 5 12:20:00 Asthma 844356528 Active 025 SUZANNA MCDONOUGH MD [address], [place], [address], [facility] 5 16:18:04 Chronic sinusitis 90453209 Active 025 TREMAINE FREEMAN MD [address] [address], [place], [address], [facility] 5 08:31:19 Moderate persistent asthma 943645253 Active 025 TREMAINE FREEMAN MD [address] [facility] [address], [place], [address], [facility] 5 08:34:32 Notes:type II diabetes Problem Notes None recorded. Medical Equipment None Reported. [...] Updated DateTime 06/14/2024 175.26 cm 53.2 kg/m2 624049.25 g Giovanna Kennedy [place] [facility] 06/14/2024 10:46:57 Date Recorded Body height Body mass index (BMI) Body weight Oxygen saturation Oxygen saturation in Arterial blood by Pulse oximetry Heart rate Systolic And Diastolic Provider Name and Address Organization Details Last Updated DateTime 175.26 cm 53.2 kg/m2 675460. 25 g 95 % 95 % 80 /min 102/64 mm[Hg] DAHLIA MOLINA [address], [address], [place] [facility] 14:52:46 Social History None recorded. Functional Status [...] Disorder N Anesthesia Complications N Heart Attack (MT) N Other Skin Condition N Diabetes Y Rhinitis Y Bleeding Disorder N Food Allergy N Arthritis N Hearing Loss N Hyperlipidemia N Cancer N Eczema N Stroke N Dementia N Nasal polyps Y Asthma Y Sleep Disorder Y GERD/Reflux N High Cholesterol N Liver Disease N Headaches N Fibromyalgia N Hypertension N Speech Delay N Kidney Disease N Past Encounters Encounter ID Performer Location Encounter Start Date Encounter Closed Date Diagnosis/Indication Diagnosis SNOMED-CT Code Diagnosis ICD10 Code Diagnosis Note [id number] TRACY MCFARLAND PA-C [facility] [address] [place] [address] 06/14/2024 10:34:50 06/14/2024 11:03:02 Polyp of nasal cavity 984544104 J33.0 Nasal congestion 6058192 0 R09.81 Posterior rhinorrhea 758 65494 R09.82 Allergic rhinitis 655642 04 J30.89 Loss of se nse of smell 85641824 R43.0 [id number] DAHLIA MOLINA [facility] 100 [facility] 100 [place] [address] 07/12/2024 14:30:25 07/12/2024 15:42:34 Allergic rhinitis 97714116 J30.89 [id number] TREMAINE MILLER MD [facility] 100 [place] [address] 07/17/2024 08:27:55 07/17/2024 09:00:16 Polyp of nasal cavity 082345973 J33.0 Chronic sinusitis 188608 00 J32.9 Moderate p ersistent asthma 108849947 J45.40 Health Concerns Section Related Observation LastModified by Organization Detai ls LastModified Time None Recorded Concern Status LastModified by Organization Details LastModified Time None Recorded Advance Directives Directive None Recorded Payers Insurance Date Sequence Insurance Name Policy Number Policy Akins Covered Member ID Akins Member ID Guarantor Name 07/09/2024 1 [employer]ATHER (PPO) [id number] 1 [id number] Jhonathan Spicer 09/17/2024 1 [employer] (PPO) [id number] 1 Jhonathan [id number] Jhonathan Spicer 09/17/2024 1 HEATHER [id number] Jhonathan Spicer 07/09/2024 1 [facility] [id number] Jhonathan Spicer [id number] Jhonathan Spicer
== END 2024-12-25 16:22 | disposition home or self-care (01) ==
LOC: HO.HPSW 15:57
PROVIDERS: PCP Internal Medicine; Visit Provider Nurse Practitioner Family
DX: J45.909 Unspecified asthma, uncomplicated (principal); F17.210 Nicotine dependence, cigarettes, uncomplicated; J30.9 Allergic rhinitis, unspecified
CPT/HCPCS: 99214

== ENCOUNTER 2025-03-27 16:00 | Outpatient (AMB) | payer BC, SELFPAY ==
[2025-03-27 16:02] VITALS: BP 124/72; PULSE 77; O2SAT 97; BMI 56.0
--- NOTE | 2025-03-27 16:02 | MHC.OFFVIS ---
Vital Signs 03/27/25 16:02 Height 5 ft 9 in Weight 379 lb 4 oz BMI 56.0 BP 124/72 Blood Pressure Location Rt radial Position Sitting Pulse 77 Pulse Source Pulse Oximeter Pulse Oximetry (%) 97 Oxygen Delivery Method Room Air Intake Visit Reasons: Asthma Allergies Seasonal Allergies Allergy (Verified 03/27/25 16:04) sneezy, runny nose, cough, sob HPI HPI Asthma: Details: Jhonathan is a pleasant 44 year old male, current minimal cigar smoker x 20 years, everyday marijuana smoker with underlying asthma, allergic rhinitis, DMII, YULIA on CPAP therapy through [facility], morbid obesity BMI 56 and h/o seizure disorder. Since the last visit he has been maintained on Wixela 500 mcg, Singulair and antihistamines PRN, requiring albuterol MDI frequently. He feels his symptoms have been well controlled, denies cough, occasionally will experience wheezing and dyspnea, resolving with albuterol MDI. He endorses seasonal allergies, using Singulair with moderate effect continues with nasal congestion, reluctant to trial nasal spray. He denies any visits to urgent care or hospitalizations related to respiratory distress since the last visit. [facility] Social History Tobacco use type: Cigar Years Smoked: never cigarettes/ 5days/ week marijuana/ occasional cigars Review of Systems Const Denies chills, Denies excessive sweating, Denies fever(s), Denies headache(s) and Denies night sweats Eyes Denies dry eyes, Denies irritation and Denies itchy eyes ENT Reports Normal hearing present, Denies headache(s), Reports nasal congestion, Reports nasal discharge and Denies sore throat Card Denies chest pain, Denies chest pain at rest, Denies chest pain with activity, Denies claudication, Denies leg edema, Denies dyspnea, Reports dyspnea on exertion, Denies orthopnea and Denies paroxysmal nocturnal dyspnea Resp Denies chest congestion, Denies cough, Denies excessive phlegm production, Denies pain on inspiration, Denies pain with cough, Denies dyspnea, Reports dyspnea on exertion, Denies stridor and Reports wheezing Musc Denies myalgias Neuro Reports Normal hearing present and Denies headache(s) Endo Denies excessive sweating Marlon/Lymph Denies lymphadenopathy Aller/Immun Denies itchy eyes, Denies seasonal rhinorrhea and Reports wheezing Physical Exam Vital Signs: Last Vital Signs Pulse 77 03/27/25 16:02 Pulse Ox 97 03/27/25 16:02 Oxygen Delivery Method Room Air 03/27/25 16:02 BMI result Body Mass Index 56.0 Const General: cooperative, healthy appearing, comfortable, no acute distress, well developed and alert Nutritional Appearance: obese Orientation/consciousness: patient oriented x3 Limitations: no limitations HEENT Head: Yes normal to inspection, Yes normocephalic and Yes atraumatic Ears: hearing grossly normal bilaterally and external ears normal Eyes General: appearance normal, both eyes and all related structures Eyelids: Yes eyelids normal Sclerae: sclerae normal EOM: EOMs intact bilaterally Neck Neck: Yes normal visual inspection and Yes no lymphadenopathy Lymphatic: no lymphadenopathy noted Chest Chest palpation & inspection: normal inspection of the chest Resp Effort & Inspection: normal respiratory effort, able to speak in complete sentences, no audible wheezes, no cough, no stridor, not tachypneic, no tripod positioning and no use of accessory muscles Auscultation: clear to auscultation bilaterally Cardio Jugular venous distension: no JVD Rate: regular rate Rhythm: regular rhythm Skin Other: warm, dry General skin exam: no rashes or lesions noted Neuro General: patient oriented x3 Cranial nerves: Yes Normal hearing present Cognition (Neuro): normal cognition Gait exam (Neuro): Normal gait present Extrem General: Yes normal to inspection, Yes capillary refill normal, Yes no clubbing, cyanosis or edema and Yes no pedal edema Psych Appearance: grossly normal and well kempt Speech and movement: Normal speech and movement present and Clear speech present Affect: normal affect Attitude: cooperative Thought process: Normal thought process present Thought content: Normal thought content present Insight: Good insight present (Psych) Judgement: Good judgement present (Psych) Assessment & Plan Assessment & Plan (1) Asthma: Code(s): J45.909 - Unspecified asthma, uncomplicated Category: Medical (2) Nicotine dependence, cigarettes, uncomplicated: Code(s): F17.210 - Nicotine dependence, cigarettes, uncomplicated Category: Medical (3) Allergic rhinitis: Code(s): J30.9 - Allergic rhinitis, unspecified Category: Medical Plan At this time, patient reports good control of respiratory symptoms on current regimen, advised to continue. If symptoms worsen with seasonal changes may need to consider biologic therapy vs consider allergy immunotherapy. Many years ago received however had poor insurance coverage so discontinued. Smoking cessation reviewed. Importance of weight loss reviewed which patient is working towards. All questions were answered and patient is in agreement of plan. Will follow up in 6 months or sooner if needed. Coding Level of Care Code Est Pt Level 3 (60873) Diagnoses Asthma J45.909 Nicotine dependence, cigarettes, uncomplicated F17.210 Allergic rhinitis J30.9
--- OUTSIDE RECORDS SUMMARY | 2025-03-27 20:05 | XMS_ITS | Data Portability ---
Author Organization [place] - [facility], Allergy Address [address] [address] Care Team Providers Care Corporate Strategy Analyst Name Role Phone ALEXEY SANTIAGO Primary Care [...] riene E4, 24 HR, U 2024 025 [email or web address] [facility] (Centralized Electronic Ordering - All Locations), [...] contra st 2024 025 WALKER [facility] [place], [address], [address], [place], [address], 08:47:44 Medication Orders None record ed. Patient TargetsNo targets recorded. Patient Instructions Encounter Date Encounter Id Patient Instructions Last Modified By Organization Details Last Modified Time 07/17/2024 [id number] 10-minute Doximity telehealth visit using video and [...] /uL 3.4-10 .8 normal Not Available [facility] ([facility]) [address] [place], [address], 07/20/2024 05:16:44 07/17/19 25 07/18/2024 CBC WITH DIFFE RENTI AL/PL ATELE T RBC 5.86 x10e6 /uL 4.14-5 .80 above high normal Not Available [facility] ([facility]) [address] [place], [address], 07/20/2024 05:16:44 07/17/19 25 07/18/2024 CBC WITH DIFFE RENTI AL/PL ATELE T hemoglobin 15.5 g/dL 13.0-1 7.7 normal Not Available [facility] ([facility]) [address] [facility], [place], [address], 07/20/2024 05:16:44 07/17/19 25 07/18/2024 CBC WITH DIFFE RENTI AL/PL ATELE T hematocrit 48.6 % 37.5-5 1.0 normal Not Available [facility] ([facility]) [address] [facility], [place], [address], 07/20/2024 05:16:44 07/17/19 25 07/18/2024 CBC WITH DIFFE RENTI AL/PL ATELE T MCV 83 fL 79-97 normal Not Available [facility] ([facility]) [address] [facility], [place], [address], 07/20/2024 05:16:44 07/17/19 25 07/18/2024 CBC WITH DIFFE RENTI AL/PL ATELE T MCH 26.5 pg 26.6-3 3.0 below low normal Not Available [facility] ([facility]) [address] [facility], [place], [address], 07/20/2024 05:16:44 07/17/19 25 07/18/2024 CBC WITH DIFFE RENTI AL/PL ATELE T MCHC 31.9 g/dL 31.5-3 5.7 normal Not Available [facility] ([facility]) [address] [place], [address], 07/20/2024 05:16:44 07/17/19 25 07/18/2024 CBC WITH DIFFE RENTI AL/PL ATELE T RDW 12.9 % 11.6-1 5.4 Not Available [facility] ([facility]) [address] [place], [address], 07/20/2024 05:16:44 07/17/19 25 07/18/2024 CBC WITH DIFFE RENTI AL/PL ATELE T platelets 239 x10e3 /uL 150-45 0 normal Not Available [facility] ([facility]) [address] [facility], [place], [address], 07/20/2024 05:16:44 07/17/19 25 07/18/2024 CBC WITH DIFFE RENTI AL/PL ATELE T neutrophils 50 % not estab. normal Not Available [facility] ([facility]) [address] [facility], [place], [address], 07/20/2024 05:16:44 07/17/19 25 07/18/2024 CBC WITH DIFFE RENTI AL/PL ATELE T lymphs 34 % not estab. normal Not Available [facility] ([facility]) [address] [facility], [place], [address], 07/20/2024 05:16:44 07/17/19 25 07/18/2024 CBC WITH DIFFE RENTI AL/PL ATELE T monocytes 9 % not estab. normal Not Available [facility] ([facility]) [address] [facility], [place], [address], 07/20/2024 05:16:44 07/17/19 25 07/18/2024 CBC WITH DIFFE RENTI AL/PL ATELE T eos 6 % not estab. normal Not Available [facility] ([facility]) [address] [facility], [place], [address], 07/20/2024 05:16:44 07/17/19 25 07/18/2024 CBC WITH DIFFE RENTI AL/PL ATELE T basos 1 % not estab. normal Not Available [facility] ([facility]) [address] [facility], [place], [address], 07/20/2024 05:16:44 07/17/19 25 07/18/2024 CBC WITH DIFFE RENTI AL/PL ATELE T immature cells RURAL SOCIOLOGIST Not Available [facility] ([facility]) [address] [place], [address], 07/20/2024 05:16:44 07/17/19 25 07/18/2024 CBC WITH DIFFE RENTI AL/PL ATELE T neutrophils (absolute) 3.5 x10e3 /uL 1.4-7. 0 normal Not Available [facility] ([facility]) [address] [place], [address], 07/20/2024 05:16:44 07/17/19 25 07/18/2024 CBC WITH DIFFE RENTI AL/PL ATELE T lymphs (absolute) 2.4 x10e3 /uL 0.7-3. 1 normal Not Available [facility] ([facility]) [address] [place], [address], 07/20/2024 05:16:44 07/17/19 25 07/18/2024 CBC WITH DIFFE RENTI AL/PL ATELE T monocytes(ab solute) 0.7 x10e3 /uL 0.1-0. 9 normal Not Available [facility] ([facility]) [address] [place], [address], 07/20/2024 05:16:44 07/17/19 25 07/18/2024 CBC WITH DIFFE RENTI AL/PL ATELE T eos (absolute) 0.5 x10e3 /uL 0.0-0. 4 above high normal Not Available [facility] ([facility]) [address] [place], [address], 07/20/2024 05:16:44 07/17/19 25 07/18/2024 CBC WITH DIFFE RENTI AL/PL ATELE T baso (absolute) 0.1 x10e3 /uL 0.0-0. 2 normal Not Available [facility] ([facility]) [address] [place], [address], 07/20/2024 05:16:44 07/17/19 25 07/18/2024 CBC WITH DIFFE RENTI AL/PL ATELE T immature granulocytes 0 % not estab. Not Available [facility] ([facility]) [address] [place], [address], 07/20/2024 05:16:44 07/17/19 25 07/18/2024 CBC WITH DIFFE RENTI AL/PL ATELE T immature grans (abs) 0.0 x10e3 /uL 0.0-0. 1 Not Available [facility] ([facility]) [address] [facility], [place], [address], 07/20/2024 05:16:44 07/17/19 25 07/18/2024 CBC WITH DIFFE RENTI AL/PL ATELE T NRBC RURAL SOCIOLOGIST Not Available [facility] ([facility]) [address] [facility], [place], [address], 07/20/2024 05:16:44 07/17/19 25 07/18/2024 CBC WITH DIFFE RENTI AL/PL ATELE T hematology comments: RURAL SOCIOLOGIST Not Available [facility] ([facility]) [address] [facility], [place], [address], 07/20/2024 05:16:44 07/17/19 25 07/17/2024 ALLER GENS, [...] >100. 00 Very High Not Available [facility] ([facility]) [address] [facility], [place], [address], 07/20/2024 05:16:45 07/17/19 25 07/20/2024 ALLER GENS, ZONE 1 J723-OvB D pteronyssinu s 3.14 kU/L class III abnormal Not Available [facility] ([facility]) [address] [place], [address], 07/20/2024 05:16:45 07/17/19 25 07/20/2024 ALLER GENS, ZONE 1 V250-BaC D farinae 3.84 kU/L class III abnormal Not Available [facility] ([facility]) [address] [place], [address], 07/20/2024 05:16:45 07/17/19 25 07/20/2024 ALLER GENS, ZONE 1 F266-ViM CAT dander 1.14 kU/L class II abnormal Not Available [facility] ([facility]) [address] [place], [address], 07/20/2024 05:16:45 07/17/19 25 07/20/2024 ALLER GENS, ZONE 1 K352-FeP dog dander 4.03 kU/L class IV abnormal Not Available [facility] ([facility]) [address] [place], [address], 07/20/2024 05:16:45 07/17/19 25 07/20/2024 ALLER GENS, ZONE 1 q197-WhE bermuda grass 0.34 kU/L class I abnormal Not Available [facility] ([facility]) [address] [place], [address], 07/20/2024 05:16:45 07/17/19 25 07/20/2024 ALLER GENS, ZONE 1 k312-AbZ bluegrass, [place] 0.17 kU/L class 0/I abnormal Not Available [facility] ([facility]) [address] [place], [address], 07/20/2024 05:16:45 07/17/19 25 07/20/2024 ALLER GENS, ZONE 1 z282-UmU bahia grass 0.22 kU/L class 0/I abnormal Not Available [facility] ([facility]) [address] [place], [address], 07/20/2024 05:16:45 07/17/19 25 07/20/2024 ALLER GENS, ZONE 1 C042-SeM cockroach, equatorial guinean 0.64 kU/L class II abnormal Not Available [facility] ([facility]) [address] [place], [address], 07/20/2024 05:16:45 07/17/19 25 07/20/2024 ALLER GENS, ZONE 1 C577-HzH penicillium chrysogen 0.72 kU/L class II abnormal Not Available [facility] ([facility]) [address] [place], [address], 07/20/2024 05:16:45 07/17/19 25 07/20/2024 ALLER GENS, ZONE 1 A789-LqF cladosporium herbarum 0.79 kU/L class II abnormal Not Available [facility] ([facility]) [address] [place], [address], 07/20/2024 05:16:45 07/17/19 25 07/20/2024 ALLER GENS, ZONE 1 F722-JhW aspergillus fumigatus 0.14 kU/L class 0/I abnormal Not Available [facility] ([facility]) [address] [place], [address], 07/20/2024 05:16:45 07/17/19 25 07/20/2024 ALLER GENS, ZONE 1 R383-AaR mucor racemosus <0.10 kU/L class 0 Not Available [facility] ([facility]) [address] [place], [address], 07/20/2024 05:16:45 07/17/19 25 07/20/2024 ALLER GENS, ZONE 1 V494-GxP alternaria alternata 0.82 kU/L class II abnormal Not Available [facility] ([facility]) [address] [facility], [place], [address], 07/20/2024 05:16:45 07/17/19 25 07/20/2024 ALLER GENS, ZONE 1 S307-NtW stemphylium herbarum 0.38 kU/L class I abnormal Not Available [facility] ([facility]) [address] [place], [address], 07/20/2024 05:16:45 07/17/19 25 07/20/2024 ALLER GENS, ZONE 1 M982-ZoJ common silver birch 6.89 kU/L class IV abnormal Not Available [facility] ([facility]) [address] [place], [address], 07/20/2024 05:16:45 07/17/19 25 07/20/2024 ALLER GENS, ZONE 1 N349-ZlL oak, white 2.51 kU/L class III abnormal Not Available [facility] ([facility]) [address] [place], [address], 07/20/2024 05:16:45 07/17/19 25 07/20/2024 ALLER GENS, ZONE 1 W937-SaO elm, equatorial guinean 0.31 kU/L class 0/I abnormal Not Available [facility] ([facility]) [address] [place], [address], 07/20/2024 05:16:45 07/17/19 25 07/20/2024 ALLER GENS, ZONE 1 D023-EmW miguel, white 0.55 kU/L class I abnormal Not Available [facility] ([facility]) [address] [place], [address], 07/20/2024 05:16:45 07/17/19 25 07/20/2024 ALLER GENS, ZONE 1 M666-XdY maple/box elder 0.28 kU/L class 0/I abnormal Not Available [facility] ([facility]) [address] [facility], [place], [address], 07/20/2024 05:16:45 07/17/19 25 07/20/2024 ALLER GENS, ZONE 1 F063-YbO hazelnut tree 3.10 kU/L class III abnormal Not Available [facility] ([facility]) [address] [facility], [place], [address], 07/20/2024 05:16:45 07/17/19 25 07/20/2024 ALLER GENS, ZONE 1 P780-CtP hickory, white 0.44 kU/L class I abnormal Not Available [facility] ([facility]) [address] [facility], [place], [address], 07/20/2024 05:16:45 07/17/19 25 07/20/2024 ALLER GENS, ZONE 1 I708-LmP white mulberry <0.10 kU/L class 0 Not Available [facility] ([facility]) [address] [facility], [place], [address], 07/20/2024 05:16:45 07/17/19 25 07/20/2024 ALLER GENS, ZONE 1 I061-BmC cedar, mountain 0.37 kU/L class I abnormal Not Available [facility] ([facility]) [address] [place], [address], 07/20/2024 05:16:45 07/17/19 25 07/20/2024 ALLER GENS, ZONE 1 J677-HnK ragweed, short 0.50 kU/L class I abnormal Not Available [facility] ([facility]) [address] [place], [address], 07/20/2024 05:16:45 07/17/19 25 07/20/2024 ALLER GENS, ZONE 1 B774-QxB mugwort 0.27 kU/L class 0/I abnormal Not Available [facility] ([facility]) [address] [place], [address], 07/20/2024 05:16:45 07/17/19 25 07/20/2024 ALLER GENS, ZONE 1 C238-DxE plantain, belarusian 0.34 kU/L class I abnormal Not Available [facility] ([facility]) [address] [place], [address], 07/20/2024 05:16:45 07/17/19 25 07/20/2024 ALLER GENS, ZONE 1 F459-WaP pigweed, common 0.34 kU/L class I abnormal Not Available [facility] ([facility]) [address] [place], [address], 07/20/2024 05:16:45 07/17/19 25 07/20/2024 ALLER GENS, ZONE 1 K143-NiC sheep sorrel 0.29 kU/L class 0/I abnormal Not Available [facility] ([facility]) [address], [place], [address], 07/20/2024 05:16:45 07/17/19 25 07/20/2024 ALLER GENS, ZONE 1 F889-UaK nettle 0.29 kU/L class 0/I abnormal Not Available [facility] ([facility]) [address] [place], [address], 07/20/2024 05:16:45 07/17/19 25 07/20/2024 IMMUN OGLOB ULIN E, TOTAL immunoglobul in E, total 978 IU/mL 6-495 above high normal Not Available [facility] ([facility]) [address] [place], [address], 07/20/2024 05:16:46 06/28/19 25 06/27/2024 CT, sinus es, w/o contr ast No observ ation record ed. [email or web address] [facility] [place] [address] [address], [place], [address], 06/28/2024 09:31:45 07/12/19 kehinde metry testi ng* No observ ation record ed. sam Not Available 21:35:06 07/12/19 25 01/18/2024 kehinde metry testi ng* No observ ation record ed. sam [facility] [id number] 07/12/2024 21:34:58 Result Notes None recorded. Problems Name Problem SNOMED Code Status Onset Date Resolution Date Notes Provider Name and Address Organization Details Recorded Time Polyp of nasal cavity 416795962 Active 025 TRACY MCFARLAND PA-C [address], [place], [address], [facility] 5 12:18:00 Nasal congestion 06589587 Active 025 TRACY MCFARLAND PA-C [address], [place], [address], [facility] - [facility] 5 12:18:04 Posterior rhinorrhea 34588702 Active 025 TRACY MCFARLAND PA-C [address], [place], [address], [facility] - [facility] 5 12:18:09 Allergic rhinitis 65682681 Active 025 TRACY MCFARLAND PA-C [address], [place], [address], [facility] - [facility] 5 12:18:19 Loss of sense of smell 22204818 Active 025 TRACY MCFARLAND PA-C [address], [place], [address], [facility] - [facility] 5 12:20:00 Asthma 687456149 Active 025 SUZANNA MCDONOUGH MD [address], [place], [address], [facility] - [facility] 5 16:18:04 Chronic sinusitis 09036908 Active 025 TREMAINE FREEMAN MD [address] [address], [place], [address], [facility] 5 08:31:19 Moderate persistent asthma 179661578 Active 025 TREMAINE FREEMAN MD 100 [facility] [address], [place], [address], [facility] 5 08:34:32 Notes:type II diabetes Problem Notes [...] Updated DateTime 06/14/2024 175.26 cm 53.2 kg/m2 232679.25 g Giovanna Kennedy [place] - [facility] 06/14/2024 10:46:57 Date Recorded Body height Body mass index (BMI) Body weight Oxygen saturation Oxygen saturation in Arterial blood by Pulse oximetry Heart rate Systolic And Diastolic Provider Name and Address Organization Details Last Updated DateTime 175.26 cm 53.2 kg/m2 608241. 25 g 95 % 95 % 80 /min 102/64 mm[Hg] DAHLIA MOLINA [address], [address], [place] [facility] 14:52:46 Social History None recorded. Functional Status [...] Migraines N Thyroid Problems Y Glaucoma N Developmental Delay N Depression Y COPD N Nasal or Sinus Problems Y Anemia N Immune System Disorder N Anesthesia Complications N Heart Attack ([place]) N Other Skin Condition N Diabetes Y Rhinitis Y Bleeding Disorder N Food Allergy N Hearing Loss N Arthritis N Hyperlipidemia N Eczema N Cancer N Stroke N Dementia N Nasal polyps Y Asthma Y Sleep Disorder Y High Cholesterol N GERD/Reflux N Liver Disease N Headaches N Fibromyalgia N Hypertension N Speech Delay N Kidney Disease N Past Encounters Encounter ID Performer Location Encounter Start Date Encounter Closed Date Diagnosis/Indication Diagnosis SNOMED-CT Code Diagnosis ICD10 Code Diagnosis IMO Codes Diagnosis Note [id number] TRACY MCFARLAND PA-C [facility] [address] [place] [address] 06/14/2024 10:34:50 06/14/2024 11:03:02 Polyp of nasal cavity 170005009 J33.0 Nasal congestion 2031674 0 R09.81 Posterior rhinorrhea 758 93511 R09.82 Allergic rhinitis 138818 04 J30.89 Loss of se nse of smell 14094129 R43.0 [id number] [facility] [address] [facility] 100 [place] [address] 07/12/2024 14:30:25 07/12/2024 15:42:34 Allergic rhinitis 28371674 J30.89 [id number] TREMAINE MILLER MD [facility] 100 [facility] [place] [address] 07/17/2024 08:27:55 07/17/2024 09:00:16 Polyp of nasal cavity 525537447 J33.0 Chronic sinusitis 899289 00 J32.9 Moderate p ersistent asthma 594014607 J45.40 Health Concerns Section Related Observation LastModified by Organization Detai ls LastModified Time None Recorded Concern Status LastModified by Organization Details LastModified Time None Recorded Advance Directives Directive None Recorded Payers Insurance Date Sequence Insurance Name Policy Number Policy Akins Covered Member ID Akins Member ID Guarantor Name 07/09/2024 1 [place] [id number] Jhonathan Spicer [id number] Jhonathan Spicer 09/17/2024 1 [place] [id number] Jhonathan [id number] Jhonathan Spicer 09/17/2024 1 [place] [id number] Jhonathan Spicer [id number] Jhonathan Spicer 07/09/2024 1 [facility] [id number] Jhonathan Spicer [id number] Jhonathan Spicer Notes Date Note Type Note Provider Name and Address Organization Details Recorded Time 06/14/2024 text/html ROS as noted in the HPI 44 year old male presents for evaluation [...] prior nasal surgeries. TRACY MCFARLAND PA-C [address] [facility],[address] [address], [place], [address], [place] - [facility] 06/14/2024 12:25:02 07/17/2024 text/html ROS as noted in the HPI Had CT showing pansinusitis. There is chronic [...] disease Doximity visit TREMAINE SIMEON MD 100 [facility] [address], [place], [address], [place] [facility] 07/17/2024 08:35:47
== END 2025-03-27 16:18 | disposition home or self-care (01) ==
LOC: HO.HPSW 16:01
PROVIDERS: PCP Internal Medicine; Visit Provider Nurse Practitioner Family
DX: J45.909 Unspecified asthma, uncomplicated (principal); F17.210 Nicotine dependence, cigarettes, uncomplicated; J30.9 Allergic rhinitis, unspecified
CPT/HCPCS: 99213